=== PATIENT | female | born 1995 | race Caucasian/White ===

== ENCOUNTER → 2021-01-10 | Outpatient (CLI) | payer OTHER ==
[~2021-01-10] MED LIST: COLACE 100MG C100 MG PO; DULCOLAX STOOL100 MG PO; HYDROCODON-ACE1 EAC3 PO; IBU800 MG PO; LEXAPRO5 MG PO; PRENATAL VITAM1 EAC6 PO; PROTONIX 40 MG40 M1 PO; ZYRTEC10 MG PO
[2021-01-10 14:37] LABS: RED BLOOD COUNT 4.12 M/UL (4.00-5.10); WHITE BLOOD COUNT 11.1 K/UL (4.5-11.0)
== END ==
LOC: GENOP 12:50
PROVIDERS: Obstetrics & Gynecology
DX: Z01.812 Encounter for preprocedural laboratory examination (principal)
CPT/HCPCS: 36415; 81001; 85025

== ENCOUNTER 2021-01-13 05:27 | Inpatient (IN) | payer OTHER ==
[~2021-01-13] VITALS: Ht 157.5 cm; Wt 91.6 kg
[~2021-01-13 05:27] MED LIST changes: -DULCOLAX STOOL100 MG PO; -HYDROCODON-ACE1 EAC3 PO; -IBU800 MG PO; -LEXAPRO5 MG PO; -PRENATAL VITAM1 EAC6 PO; -PROTONIX 40 MG40 M1 PO; -ZYRTEC10 MG PO
[2021-01-13] MEDS ORDERED: PROTONIX 40 MG40 M1 PO (06:09)
[2021-01-13] MEDS ORDERED: PRENATAL VITAM1 EAC6 PO (06:09)
[2021-01-13] MEDS ORDERED: ZYRTEC10 MG PO (06:09)
[2021-01-13] MEDS ORDERED: LEXAPRO5 MG PO (06:10)
[2021-01-14 06:02] LABS: HEMOGLOBIN 10.8 gm/dl (12.3-15.3)
[2021-01-14] MEDS ORDERED: HYDROCODON-ACE1 EAC3 PO (15:52)
[2021-01-14] MEDS ORDERED: LEXAPRO5 MG PO (15:52)
[2021-01-14] MEDS ORDERED: DULCOLAX STOOL100 MG PO (15:52)
[2021-01-14] MEDS ORDERED: PROTONIX 40 MG40 M1 PO (15:52)
[2021-01-14] MEDS ORDERED: PRENATAL VITAM1 EAC6 PO (15:52)
[2021-01-14] MEDS ORDERED: IBU800 MG PO (15:52)
[2021-01-14] MEDS ORDERED: ZYRTEC10 MG PO (15:52)
== END 2021-01-14 16:18 | disposition home or self-care (01) | DRG 788 ==
LOC: OB 05:27
PROVIDERS: Obstetrics & Gynecology; ADMIT Obstetrics & Gynecology
PROC: 4A1HXCZ Monitoring of Products of Conception, Cardiac Rate, External Approach (ICD-10-PCS; 2021-01-13)
PROC: 10D00Z1 Extraction of Products of Conception, Low, Open Approach (ICD-10-PCS; principal; 2021-01-13 07:30)
DX: O34.211 Maternal care for low transverse scar from previous cesarean delivery (principal); O24.429 Gestational diabetes mellitus in childbirth, unspecified control; O99.344 Other mental disorders complicating childbirth; O36.63X0 Maternal care for excessive fetal growth, third trimester, not applicable or unspecified; F41.9 Anxiety disorder, unspecified; Z20.822 Contact with and (suspected) exposure to COVID-19; O99.62 Diseases of the digestive system complicating childbirth; K21.9 Gastro-esophageal reflux disease without esophagitis; Z3A.39 39 weeks gestation of pregnancy; Z37.0 Single live birth; Z88.1 Allergy status to other antibiotic agents; Z88.0 Allergy status to penicillin; Z88.2 Allergy status to sulfonamides; Z82.49 Family history of ischemic heart disease and other diseases of the circulatory system; Z90.49 Acquired absence of other specified parts of digestive tract
CPT/HCPCS: 36415; 82800; 85014; 85018; C9113; J1170; J1580; J1885; J2250; J2274; J2405; J2590; J3010; J7120; U0003